=== PATIENT | female | born 1945 | race Caucasian/White ===

== ENCOUNTER 2022-12-03 10:30 | Outpatient (CLI) | payer MEDICARE, OTHER | END 2022-12-03 10:45 | disposition home or self-care (01) | LOC: LAB.N 10:30 | PROVIDERS: ATTEND Registered Nurse | DX: R82.79 Other abnormal findings on microbiological examination of urine (principal); M54.50 Low back pain, unspecified | CPT/HCPCS: 87086 ==

== ENCOUNTER → 2023-02-06 | Outpatient (CLI) | payer OTHER, MEDICARE | END | disposition short-term general hospital (02) | LOC: EMS 20:17 | DX: S01.81XA Laceration without foreign body of other part of head, initial encounter (principal); R41.0 Disorientation, unspecified; M25.532 Pain in left wrist; M54.50 Low back pain, unspecified; V57.5XXA Driver of pick-up truck or van injured in collision with fixed or stationary object in traffic accident, initial encounter; Y92.413 State road as the place of occurrence of the external cause ==

== ENCOUNTER 2024-02-03 15:11 | Emergency (ER) | payer MEDICARE, OTHER ==
--- NOTE | 2024-02-03 16:25 | CT Report ---
PROCEDURE: Head WO INDICATIONS: fall, head injury TECHNIQUE: Noncontrast 4.5 mm thick angled axial sections acquired from the foramen magnum to the vertex. For r adiation dose reduction, the following was used: automated exposure control, adjustment of mA and/or kV according to patient size. COMPARISON: None. FINDINGS: Image quality: Excellent. CSF spaces: Basal cisterns are patent. No extra-axial fluid collections. Ventricles are normal in size and shape. Brain: No midline shift. No intracranial masses or hemorrhage. Age-related global volume loss and c hronic microvascular ischemic changes. Intracranial atherosclerotic vascular calcifications. Badillo-w delvin matter interface is normal. Skull and face: Calvarium and visualized facial bones are intact, without suspicious lesions. Bilate ral lens replacements. The orbits are otherwise normal in appearance. Sinuses: Visualized sinuses and mastoids are clear. IMPRESSION: No acute intracranial pathology. Reviewed by: Chivo Howard MD on 02/03/2024 4:24 PM PDT Approved by: Chivo Howard MD on 02/03/2024 4:24 PM PDT Station ID: [id number]
--- NOTE | 2024-02-03 16:30 | ED Physician Documentation ---
History of Present Illness - Stated complaint Stated Complaint: GLF - Chief complaint Chief Complaint: Trauma Ch/Bk - History obtained from History obtained from: Patient - History of Present Illness Timing: How many days ago (5) Pain level max: 8 Pain level now: 5 - Additonal information Additional information: 78-year-old female presents to the emergency department after a fall in the bathtub 5 days ago, injuring her left ribs. She thinks she may have struck her head as well and feels "fuzzy". Not on blood thinners. No neck or back pain. Pain improved with oxycodone but she has not taken it for the past 2 days and now the rib pain is increasing. No difficulty breathing. Worse with movement, better with rest. No loss of consciousness. No vomiting. No abdominal pain. No chest pain. Review of Systems Constitutional: denies: Fever, Chills GI: denies: Vomiting Skin: denies: Rash Musculoskeletal: denies: Neck pain, Back pain PD PAST MEDICAL HISTORY - Past Medical History Past Medical History: Yes Cardiovascular: High cholesterol Endocrine/Autoimmune: HyPOthyroidism - Past Surgical History Past Surgical History: Yes - Present Medications Home Medications: Ambulatory Orders Medication Instructions Recorded Confirmed Lidocaine Patch 5% [Lidoderm Patch] 1 patch TOP DAILY PRN #10 patch 02/03/24 oxyCODONE [Roxicodone] 5 - 10 mg PO Q6H PRN #20 tablet 02/03/24 MDD 6 - Allergies Allergies/Adverse Reactions: Allergies Allergy/AdvReac Type Severity Reaction Status Date / Time No Known Drug Allergies Allergy Verified 02/03/24 15:15 - Social History Does the pt smoke?: No Smoking Status: Never smoker Does the pt drink ETOH?: No Does the pt have substance abuse?: No - Immunizations Immunizations are current?: Yes PD ED PE NORMAL - Vitals Vital signs reviewed: Yes - General General: Alert and oriented X 3, No acute distress - HEENT HEENT: Atraumatic, PERRL, Moist mucous membranes - Neck Neck: Supple, no meningeal sign, No bony TTP - Cardiac Cardiac: RRR, Strong equal pulses - Respiratory Respiratory: No respiratory distress, Clear bilaterally - Abdomen Abdomen: Soft, Non tender, Non distended - Back Back: No CVA TTP, No spinal TTP - Derm Derm: Warm and dry - Neuro Neuro: Alert and oriented X 3 - Psych Psych: Normal mood, Normal affect - Free text exam Free text exam: Tender to palpation over the left anterior ribs and lateral aspect of the ribs. No crepitus. No ecchymosis. Results - Vitals Vitals: Vital Signs - 24 hr 02/03/24 15:16 Temperature 36.8 C Heart Rate 78 Respiratory 16 Rate Blood Pressure 114/95 H O2 Saturation 99 Oxygen O2 Source Room air - Rads (name of study) Head CT Relevant Findings:: Final report received, See rad report Chest CT Relevant Findings:: Final report received, See rad report PD Medical Decision Making - ED course Complexity details: reviewed results, re-evaluated patient, considered differential, d/w patient ED course: 78-year-old female with left-sided rib fractures, eighth, ninth, 10th ribs. No pneumothorax or hemothorax. Pain well-controlled in the emergency department. Declines pain medication here other than a Lidoderm patch. Would like pain medication for home. She does not want to stay in the hospital. No hypoxia or respiratory distress. Counseled regarding pneumonia risk, fever. Patient was ambulating without difficulty. No acute findings on head CT. Patient counseled regarding signs and symptoms for which I believe and urgent re-evaluation would be necessary. Patient with good understanding of and agreement to plan and is comfortable going home at this time This document was made in part using voice recognition software. While efforts are made to proofread this document, sound alike and grammatical errors may occur. Departure - Departure Disposition: 01 Home, Self Care Clinical Impression: Ribs, multiple fractures Qualifiers: Encounter type: initial encounter Fracture type: closed Laterality: left Qualified Code(s): S22.42XA - Multiple fractures of ribs, left side, initial encounter for closed fracture Condition: Good Instructions: ED Fx Rib Follow-Up: CHERYL MCKEON DO [Primary Care Provider] - Prescriptions: Lidocaine Patch 5% [Lidoderm Patch] 1 patch TOP DAILY PRN #10 patch PRN Reason: pain oxyCODONE [Roxicodone] 5 - 10 mg PO Q6H PRN #20 tablet MDD 6 PRN Reason: pain Comments: Your prescriptions were sent to the [facility] pharmacy in [place]. Please follow-up with your doctor next week for repeat evaluation. Please return if you worsen. As we discussed you have fractures of your left eighth and ninth and 10th ribs. Make sure you are taking plenty of deep breaths at home. I am prescribing a short course of narcotic pain medication for you. These are potentially dangerous and addictive medications that should be used carefully. These medications may constipate you. Take an yltk-uxz-gnbjsyv stool softener (docusate) twice daily with plenty of water while taking these medications. If you go 24 hours without a bowel movement, take vnhk-[id number]-vvbixoy miralax, per package instructions. Do not drink or drive while taking these medications. If you received narcotic or sedating medications while in the emergency department, do not drive for 24 hours. Store this medication in a safe, secure place and out of reach of children. It is a violation of federal law to give or sell this medication to another person or to use in a manner other than prescribed. The ED will not refill narcotic prescriptions, including prescriptions lost or stolen. To dispose of unwanted medications: 1. [facility] at [address] in [place] has a medication drop box. They accept prescription medications (in pill form) Tuesday through Tuesday 9:00 a.m. to 5:00 p.m. 2. [facility] [employer] accepts prescription medications (in pill form only) for disposal year round. Call for more information. 3. Contact the [facility] for the next [facility] sponsored prescription drug collection event. , [phone], or [phone]; PROCEDURE: Chest WO INDICATIONS: L lat 8-9 rib pain s/p fall 5 days ago TECHNIQUE: A CT scan of the chest was performed. Intravenous contrast media was not administered. Images were recorded and evaluated at appropriate window settings. Reformats: axial MIP of the chest, coronal and sagittal. For radiation dose reduction, the following was used: automated exposure control, adjustment of mA and/or kV according to patient size. COMPARISON: None. FINDINGS: Image quality: Diagnostic. Chest wall and lower neck: No thyroid nodule which requires sonographic follow up. No axillary or supraclavicular adenopathy by size. Lungs and pleura: No consolidation. Small left pleural effusion. Bibasilar subsegmental atelectasis. No suspicious pulmonary nodules which require follow up. Mediastinum: Heart size is normal. No pericardial effusion. No large vessel abnormality. Atherosclerotic vascular pulsations. No mediastinal adenopathy by size criteria. Bones: Nondisplaced fractures of the left posterior eighth and 10th ribs. Mildly displaced fracture of the left lateral ninth rib. Degenerative changes in the spine in a pattern consistent with diffuse idiopathic skeletal hyperostosis.. Decreased osseous mineralization. Upper Abdomen: Unremarkable. IMPRESSION: 1.Mildly displaced left eighth, ninth and 10th rib fractures. 2.Small left pleural effusion. No pneumothorax. Forms: PCP List
--- NOTE | 2024-02-03 16:36 | CT Report ---
PROCEDURE: Chest WO INDICATIONS: L lat 8-9 rib pain s/p fall 5 days ago TECHNIQUE: A CT scan of the chest was performed. Intravenous contrast media was not administered. Images were re corded and evaluated at appropriate window settings. Reformats: axial MIP of the chest, coronal and s agittal. For radiation dose reduction, the following was used: automated exposure control, adjustment of mA and/or kV according to patient size. COMPARISON: None. FINDINGS: Image quality: Diagnostic. Chest wall and lower neck: No thyroid nodule which requires sonographic follow up. No axillary or sup raclavicular adenopathy by size. Lungs and pleura: No consolidation. Small left pleural effusion. Bibasilar subsegmental atelectasis. No suspicious pulmonary nodules which require follow up. Mediastinum: Heart size is normal. No pericardial effusion. No large vessel abnormality. Atherosclero tic vascular pulsations. No mediastinal adenopathy by size criteria. Bones: Nondisplaced fractures of the left posterior eighth and 10th ribs. Mildly displaced fracture o f the left lateral ninth rib. Degenerative changes in the spine in a pattern consistent with diffuse idiopathic skeletal hyperostosis.. Decreased osseous mineralization. Upper Abdomen: Unremarkable. IMPRESSION: 1.Mildly displaced left eighth, ninth and 10th rib fractures. 2.Small left pleural effusion. No pneumothorax. Reviewed by: Cihvo Howard MD on 02/03/2024 4:35 PM PDT Approved by: Chivo Howard MD on 02/03/2024 4:35 PM PDT Station ID: [id number]
[2024-02-03] MEDS: LIDOCAINE PATCH 5% TOP STA (17:08)
[2024-02-03 17:13] VITALS: BP 116/88; O2SAT 98
== END 2024-02-03 17:11 | disposition home or self-care (01) ==
LOC: ED 15:11
DX: S22.42XA Multiple fractures of ribs, left side, initial encounter for closed fracture (principal); W01.198A Fall on same level from slipping, tripping and stumbling with subsequent striking against other object, initial encounter; E78.00 Pure hypercholesterolemia, unspecified; E03.9 Hypothyroidism, unspecified
CPT/HCPCS: 70450; 71250; 99283; 99284; A9270